=== PATIENT | male | born 1965 | race Caucasian/White ===

== ENCOUNTER 2025-04-23 14:51 | Emergency (ER) | payer MEDICARE, OTHER ==
[~2025-04-23] VITALS: Ht 157.5 cm; Wt 72.7 kg
[2025-04-23 15:01] VITALS: BP 149/77; PULSE 66; RESP 20; TEMP 98.1; O2SAT 100
[2025-04-23 15:36] LABS: PLATELET COUNT (AUTO) 282 K/uL (150-450); RED BLOOD CELL COUNT(AUTO) 5.11 MIL/uL (4.50-5.90); RED CELL DISTRIBUTION WIDTH 14.3 % (11.5-14.5); WHITE BLOOD COUNT (AUTO) 9.8 K/uL (4.5-11.0)
[2025-04-23 15:47] LABS: ASPARTATE AMINOTRANSFERASE 20.0 U/L (15-37); TOTAL PROTEIN, SERUM 8.1 g/dL (6.4-8.2)
[2025-04-23 15:48] LABS: CALCIUM, TOTAL 8.6 mg/dL (8.8-10.5); CREATININE 0.80 mg/dL (0.60-1.30); GLOMERULAR FILTR. RATE CALC > 60 mL/min (>60); GLUCOSE,RANDOM 128 mg/dL (70-110); SODIUM SERUM 138 mmol/L (136-145); UREA NITROGEN, BLOOD 19 mg/dL (7-18)
[2025-04-23 16:15] LABS: APPEARANCE,URINE CLEAR (CLEAR); GLUCOSE, URINE (UA) TRACE mg/dL (NEGATIVE); LEUKOCYTE ESTERASE ,URINE NEGATIVE (NEGATIVE); NITRATE,URINE NEGATIVE (NEGATIVE); OCCULT BLOOD,URINE MODERATE (NEGATIVE); SPECIFIC GRAVITIY, URINE 1.050 (1.003-1.030)
[2025-04-23 16:52] LABS: SQUAMOUS EPITHELIAL CELL,UR Few /LPF (None Seen)
[2025-04-23] MEDS: FAMOTIDINE 20 MG TABLET PO ONE (18:19)
[2025-04-23] MEDS: MAG HYDROX/ALUMINUM HYD/SIMETH ES 30 ML SUSPENSION UDCUP PO ONE (18:19)
[2025-04-23 18:48] LABS: ASPARTATE AMINOTRANSFERASE 20.0 U/L (15-37); TOTAL PROTEIN, SERUM 8.3 g/dL (6.4-8.2)
[2025-04-23] MEDS: CALCIUM CARBONATE 500 MG CHEWABLE TABLET CHEW ONE (19:58)
[2025-04-23] MEDS: KETOROLAC TROMETHAMINE 60 MG/2 ML VIAL IM ONE (19:58)
[2025-04-23] MEDS ORDERED: FAMO20 PO (20:00)
[2025-04-23] MEDS ORDERED: CALC500T37 PO (20:00)
== END 2025-04-23 20:12 | disposition home or self-care (01) ==
LOC: EMS 15:09
DX: R10.13 Epigastric pain (principal)
CPT/HCPCS: 99284; 80048; 81001; 83690; 85025; 36415; 93005; 96372; 80076; J1885